=== PATIENT | female | born 1940 | race Caucasian/White ===

== ENCOUNTER → 2024-01-31 10:58 | Outpatient (REF) | payer MEDICARE, BC, SELFPAY | LOC: HWWDC 10:58 | PROVIDERS: ATTENDING PHYSICIAN Family Medicine | DX: Z12.31 Encounter for screening mammogram for malignant neoplasm of breast (principal) | CPT/HCPCS: 77063; 77067 ==

== ENCOUNTER → 2024-11-08 10:52 | Outpatient (REF) | payer MEDICARE, BC, SELFPAY | LOC: REG 10:52 | PROVIDERS: ATTENDING PHYSICIAN Specialist | DX: N20.0 Calculus of kidney (principal) | CPT/HCPCS: 74018 ==

== ENCOUNTER → 2025-02-19 10:19 | Outpatient (REF) | payer MEDICARE, BC, SELFPAY | LOC: HWWDC 10:19 | PROVIDERS: ATTENDING PHYSICIAN Family Medicine | DX: Z12.31 Encounter for screening mammogram for malignant neoplasm of breast (principal) | CPT/HCPCS: 77063; 77067 ==